=== PATIENT | female | born 1955 | race Hispanic/Latino ===

== ENCOUNTER 2017-06-20 06:22 | Day surgery (SDC) | payer MEDICARE ==
[2017-06-20] MEDS ORDERED: HURRICAINE ONE 20% TOPICAL SPRAY MM ×2 (07:15→07:47)
[2017-06-20] MEDS ORDERED: WATER FOR IRRIG STERILE IR ONE (07:15)
[2017-06-20] MEDS ORDERED: DIPRIVAN 10 MG/ML IV ONE ×2 (07:26)
--- NOTE | 2017-06-20 07:44 | Anesthesia Consultation ---
Anesthesia Consult and Med Hx Date of service: 06/20/17 - Airway Anesthetic Teeth Evaluation: Dentures (upper) ROM Head & Neck: Adequate Mental/Hyoid Distance: Adequate Mallampati Class: Class III Intubation Access Assessment: Possibly Difficult - Pre-Operative Health Status ASA Pre-Surgery Classification: ASA3 Proposed Anesthetic Plan: MAC - Pulmonary Hx Smoking: Yes - Cardiovascular System Hx Hypertension: Yes - Central Nervous System Hx Back Pain: Yes (arthritis) - Gastrointestinal Hx Gastroesophageal Reflux Disease: Yes
--- NOTE | 2017-06-20 07:47 | Anesthesia Day of Surgery ---
Anesthesia Day of Surgery - Day of Surgery Patient Examined: Yes Patient H&P Reviewed: Yes Patient is NPO: Yes
--- NOTE | 2017-06-20 08:03 | Operative Report ---
Operative Report Operative Report: OPERATIVE REPORT - EGD DATE 06/20/17 SURGERY: Upper endoscopy. SURGEON: Dr. Davis BANKING SPECIALIST: Jorge Luis Hyman DO PRE OP DX: hx of gastric band POST OP DX: gastritis , duodenitis TYPE OF ANESTHESIA: MAC. ESTIMATED BLOOD LOSS: None. COMPLICATIONS: None. SPECIMENS REMOVED: biopsy of antrum. FINDINGS: 1. Normal band. No erosions or ulcers 2. Otherwise, normal esophagus. Gastritis of the stomach and duodenitis. INDICATIONS:INDICATION FOR PROCEDURE: Patient is a 61-year-old female with a long history of morbid obesity. She had a lap gastric band placed previously in 2002. She is having severe reflux. She states she had the fluid removed from the band. She is not currently taking a PPI. PROCEDURE DETAILS: After consent was reviewed, patient was taken back to the operating room where patient was placed in the left lateral decubitus position and a bite block was placed in the mouth. After a time-out was called, MAC anesthesia was initiated. I then passed the endoscope into her oropharynx, into her esophagus, visualized the entire esophagus, which was all within normal limits. I then visualized the stomach which had gastritis and the first portion of the duodenum which had duodenitis. I then retroflexed the scope in the stomach and visualized the hiatus and I could see the gastric band. No erosion or slip were noted . A biopsy of the antrum was performed. After retroflexing I reexamined the site of the biopsy and no bleeding was noted. I then desufflated the stomach and removed the endoscope. Patient tolerated procedure well and was transferred to recovery room in good and stable condition.She will have carafate called in to the pharmacy.
--- NOTE | 2017-06-20 08:05 | Discharge Summary ---
Providers - Providers Attending physician: GREGORIO MARTINEZ Primary care physician: YARED SNEED MD Hospitalization Procedures: egd w biopsy Hospital course: 61 y.o. F presented to amb. surg for EGD. She has a hx of lap gastric band and has been having acid reflux. She tolerated the egd well. She was discharged home the same day. Disposition: - TO HOME OR SELFCARE Core Measure Documentation - Palliative Care Palliative Care/ Comfort Measures: Not Applicable - Core Measures Any of the following diagnoses?: none Exam - Physical Exam Narrative exam: no change Plan Additional Instructions: follow up in office with Dr. Martinez Follow up with: YARED SNEED MD [Primary Care Provider] - 7 Days
[2017-06-20 08:34] VITALS: BP 114/65
--- NOTE | 2017-06-20 11:37 | Post Anesthesia Evaluation ---
- Post Anesthesia Evaluation Patient Participated: Yes Airway Patent: Yes Stable Respiratory Function: Yes Nausea/Vomiting: No Temp > 96.8F: Yes Pain Manageable: Yes Adequeate Hydration: Yes Anesthesia Complications: No
[2017-06-20] MEDS ORDERED: HURRICAINE ONE 20% TOPICAL SPRAY MM NR (18:00)
== END 2017-06-20 06:23 | disposition home or self-care (01) ==
LOC: GIO 06:22
PROVIDERS: ATTEND Specialist
DX: K29.50 Unspecified chronic gastritis without bleeding (principal); K29.80 Duodenitis without bleeding; K21.9 Gastro-esophageal reflux disease without esophagitis; I10 Essential (primary) hypertension; M19.90 Unspecified osteoarthritis, unspecified site; E66.01 Morbid (severe) obesity due to excess calories; F41.9 Anxiety disorder, unspecified; F32.9 Major depressive disorder, single episode, unspecified; F17.200 Nicotine dependence, unspecified, uncomplicated; Z98.890 Other specified postprocedural states; Z90.710 Acquired absence of both cervix and uterus; Z68.41 Body mass index [BMI] 40.0-44.9, adult; Z98.84 Bariatric surgery status; Z88.8 Allergy status to other drugs, medicaments and biological substances
CPT/HCPCS: 43239; 88305; 88342; J2704

== ENCOUNTER → 2018-06-13 | Outpatient (CLI) | payer MEDICARE | END | disposition home or self-care (01) | LOC: SLR 11:00 | PROVIDERS: ATTEND Otolaryngology | DX: G47.33 Obstructive sleep apnea (adult) (pediatric) (principal); E66.9 Obesity, unspecified; R40.0 Somnolence; I10 Essential (primary) hypertension; K21.9 Gastro-esophageal reflux disease without esophagitis | CPT/HCPCS: G0399 ==

== ENCOUNTER 2018-09-04 06:26 | Inpatient (IN) | payer MEDICARE ==
[~2018-09-04 06:26] MED LIST: ANCEF/STERILE WATER 2 GM/20 ML 2 GM/20 ML SYRINGE IV NR; FLAGYL 500 MG/100 ML 500 MG/100 ML BAG IV NR
[2018-09-04] MEDS ORDERED: APRESOLINE IV PRN (07:22)
--- NOTE | 2018-09-04 07:50 | Anesthesia Day of Surgery ---
Anesthesia Day of Surgery - Day of Surgery Patient Examined: Yes Patient H&P Reviewed: Yes Patient is NPO: Yes Cardiac Clearance: Yes
--- NOTE | 2018-09-04 07:50 | Anesthesia Consultation ---
Anesthesia Consult and Med Hx Date of service: 09/04/18 - Airway Anesthetic Teeth Evaluation: Dentures ROM Head & Neck: Adequate Mental/Hyoid Distance: Adequate Mallampati Class: Class III Intubation Access Assessment: Possibly Difficult - Pulmonary Exam CTA: Yes - Cardiac Exam Cardiac Exam: RRR - Pre-Operative Health Status ASA Pre-Surgery Classification: ASA3 Proposed Anesthetic Plan: General - Pulmonary Hx Smoking: No Hx Respiratory Symptoms: No Hx Sleep Apnea: Yes (severe; noncompliant with CPAP) - Cardiovascular System Hx Hypertension: Yes (no antihyperrtensives today) Hx Heart Attack/AMI: No Hx Percutaneous Transluminal Coronary Angioplasty (PTCA): No Hx Cardia Arrhythmia: Yes (LBBB) - Central Nervous System Hx Seizures: No CVA: No Hx Back Pain: Yes Hx Psychiatric Problems: Yes - Gastrointestinal Hx Gastroesophageal Reflux Disease: Yes (controlled) - Endocrine Hx Renal Disease: No Hx Liver Disease: No Hx Insulin Dependent Diabetes: No Hx Non-Insulin Dependent Diabetes: No Hx Thyroid Disease: No - Hematic Hx Anemia: No - Other Systems Hx Alcohol Use: Yes Hx Obesity: Yes (BMI 42) - Additional Comments Anesthesia Medical History Comments: No hx anesthetic complicactions. Normal cardiac eval.
[2018-09-04] MEDS ORDERED: TRANSDERM-SCOP TD SCH (08:00)
[2018-09-04] MEDS ORDERED: LOVENOX SUB-Q NR (08:00)
[2018-09-04] MEDS ORDERED: ANCEF/STERILE WATER 2 GM/20 ML 2 GM/20 ML SYRINGE IV NR (08:00)
[2018-09-04] MEDS ORDERED: FLAGYL 500 MG/100 ML 500 MG/100 ML BAG IV NR (08:00)
[2018-09-04] MEDS: LACTATED RINGERS 1,000 ML IV SCH ×2 (08:31→18:42)
[2018-09-04] MEDS ORDERED: REGLAN IV PRN (09:00)
[2018-09-04] MEDS ORDERED: ZOFRAN IV PRN (09:00)
[2018-09-04] MEDS ORDERED: ZEMURON IV ONE ×3 (09:43→13:23)
[2018-09-04] MEDS ORDERED: XYLOCAINE MPF 2% ONE ×3 (09:43→13:23)
[2018-09-04] MEDS ORDERED: DILAUDID ONE (09:44)
[2018-09-04] MEDS ORDERED: DIPRIVAN 10 MG/ML IV ONE ×2 (09:44→13:24)
[2018-09-04] MEDS ORDERED: XYLOCAINE 1% 20 mL INFILTRATI ONE (10:41)
[2018-09-04] MEDS ORDERED: MARCAINE-EPI 0.5%-1:200,000 INFILTRATI ONE (10:41)
[2018-09-04] MEDS ORDERED: NACL 0.9% IR ONE (10:41)
[2018-09-04] MEDS ORDERED: DECADRON ONE (11:34)
[2018-09-04] MEDS ORDERED: TORADOL ONE (11:34)
[2018-09-04] MEDS ORDERED: SUBLIMAZE ONE ×2 (11:34→13:24)
[2018-09-04] MEDS ORDERED: ZOFRAN ONE (11:34)
[2018-09-04] MEDS ORDERED: BLOXIVERZ ONE (12:18)
[2018-09-04] MEDS ORDERED: ROBINUL ONE (12:18)
[2018-09-04] MEDS ORDERED: CLORPACTIN WCS-90 IR ONE ×2 (12:19)
[2018-09-04] MEDS: SUBLIMAZE IV PRN ×2 (13:16→13:43)
[2018-09-04] MEDS: MYLICON PO PRN ×2 (16:24→22:33)
--- NOTE | 2018-09-04 17:18 | Operative Report ---
SURGEON: Nathaniel Davis M.D. STUDENT ASSISTANCE COUNSELOR: Narinder Schulz M.D. Fellow; Teresa Gutierrez M.D., [facility] PREOPERATIVE DIAGNOSES: 1. Slipped band. 2. Reflux. 3. Status post lap band placement. 4. Morbid obesity. POSTOPERATIVE DIAGNOSES: 1. Slipped band. 2. Reflux. 3. Status post lap band placement. 4. Morbid obesity. OPERATION: 1. Laparoscopic band removal with conversion to sleeve gastrectomy. 2. Lysis of adhesions. 3. Reduction and repair of primary umbilical hernia. ANESTHESIA: General endotracheal anesthesia. COMPLICATIONS: None. SPECIMENS: Gastric remnant. BLEEDIN mL. INDICATIONS: The patient is a 62-year-old female with a history of morbid obesity. She had a band placed in 2012 with some weight loss, but developed reflux. Preoperative diagnosis revealed a slipped band. She was recommended removal with conversion to a sleeve gastrectomy for her comorbidities. The risks, complications and alternatives were explained to the patient. Informed consent was obtained. DESCRIPTION OF PROCEDURE: The patient was brought to the operating room where she was placed in the supine position and underwent general endotracheal intubation. She received preoperative antibiotics and DVT prophylaxis. A timeout was called to ensure proper patient, indication, operation after she was prepped and draped in the usual sterile fashion. Local analgesia was injected around the umbilicus and then a small stab incision was made at the base with insertion of a Veress needle. Insufflation pressures were achieved to 18 mmHg and then the incision was widened and a 15 mm trocar was inserted. An intra-abdominal view noted that we were underneath the omentum; therefore, the trocar was removed and a finger sweep was done to remove the adhesions. Upon reinsertion, we were in the appropriate abdominal cavity. Under direct visualization, additional 5 mm ports were placed in the right lateral, subxiphoid and left lateral quadrants. First, the adhesions were taken down from the umbilicus. She had a small umbilical hernia with a moderate amount of incarcerated omentum that was reduced and taken down. After adhesions were taken down, a liver retractor was placed. The patient was repositioned in steep reverse Trendelenburg. She had diffuse adhesions from her band to the undersurface of the liver. On inspection, I could tell that the band had rotated and was malpositioned. The overlying omental scar tissue over the band and tubing was taken down with electrocautery following the tubing to the band itself. Dense adhesions were taken down here to finally expose the band. The overlying scar tissue was lysed until the band was freely rotated. The tubing was cut and then the band was unbuckled and removed from the proximal stomach and from the abdominal cavity. The gastro-gastric attachments were dissected free and the existing sutures were cut. The overlying scar tissue was lysed to relieve the cicatrix The angle of His was dissected free. After this, the greater curvature of the stomach was from the gastrocolic ligament using the LigaSure device. She had several omental adhesions to the antrum of the stomach, there were also free. The stomach was then fully mobilized including the short gastrics as well as about 6 cm antegrade from the duodenum. She also had numerous posterior adhesions as well that were divided. After this, Anesthesia placed a 40-English bougie. They were able to pass the bougie without difficulty and a sleeve gastrectomy was performed with several staple loads after lowering insufflation pressures. The gastric remnant was removed from the umbilical port site and the fascia was closed with a #1 PDS in a standard fashion. Of note, she did have bleeding from the undersurface of her liver that was controlled with a combination of electrocautery and Surgicel. I did leave 2 pieces of Surgicel in the proximal stomach to help with hemostasis. After this, the port was palpated in the right mid abdomen A fresh incision was made overlying her old incision and dissected down to palpate the tubing and port itself. The port was noted to have migrated and was tilted in the subcutaneous tissues. She had an older style port that utilized fascial clips. The port was entirely dissected and removed. Upon removal, there was bleeding from the subcutaneous tissues that was first controlled with electrocautery and then ultimately I did have to place a few Vicryl stitches in order to obtain hemostasis. After this, the wound was irrigated with Clorpactin solution. Additional local was injected into all the wound sites. The ports were removed and incisions were all closed with 4-0 Monocryl. Sterile bandages were placed over top of all incisions. The patient was then extubated and left the operating room in stable condition. Counts were correct at the end of the case. FINDINGS: 1. A small umbilical hernia with incarcerated omental fat that was repaired in a primary fashion. 2. Dense adhesions from the tubing and band itself at the proximal stomach and undersurface of the liver. The band appeared to be malpositioned and had slipped causing an inflammatory reaction. 3. Bleeding at the port site upon removal of the port, controlled with several suture ligatures. [facility]# [id number] JIL/JACKIE BARTLETT
[2018-09-04] MEDS: TORADOL IV SCH (21:47)
[2018-09-04] MEDS ORDERED: ELAVIL PO SCH (22:00)
[2018-09-04] MEDS ORDERED: ZANAFLEX PO SCH (22:00)
[2018-09-05 06:04] LABS: Basophils % (Auto) 0.2 % (0.0-1.8); Hematocrit 33.3 % (30.3-42.9); Hemoglobin 11.3 gm/dl (10.1-14.3); Lymphocytes # (Auto) 2.3 K/mm3 (1.2-5.4); Mean Corpuscular HGB Conc 34 % (30-34); Mean Corpuscular Volume 88 fl (79-97); Monocytes # (Auto) 0.9 K/mm3 (0.0-0.8); Monocytes % (Auto) 8.7 % (0.0-7.3); Platelet Count 327 K/mm3 (140-440); Red Blood Count 3.79 M/mm3 (3.65-5.03)
[2018-09-05 06:23] LABS: BUN/Creatinine Ratio 20; Blood Urea Nitrogen 12 mg/dL (7-17); Calcium 8.6 mg/dL (8.4-10.2); Hemolysis Index 6
[2018-09-05 07:14] LABS: Bacteria,Urine 1+ /HPF (Negative); Bilirubin,Urine NEG (Negative); Blood,Urine NEG (Negative); Color,Urine Yellow (Yellow); Mucus,Urine FEW /HPF; Protein,Urine <15 mg/dL mg/dL (Negative); RBC,Urine < 1.0 /HPF (0.0-6.0); Urobilinogen,Urine < 2.0 mg/dL (<2.0)
--- NOTE | 2018-09-05 07:36 | Discharge Summary ---
Providers - Providers Date of Admission: 09/04/18 06:26 Date of discharge: 09/05/18 Attending physician: GREGORIO MARTINEZ Primary care physician: YARED SNEED MD Hospitalization Reason for admission: postop care Condition: Good Procedures: 09/04/18: Laparoscopic band removal converted to sleeve gastrectomy Hospital course: 62F admitted after her operation for routine postop care. She was managed on the general surgical floor. She had no major issues. Ambulated, tolerated a CLD, and was dc POD1. Disposition: DC-01 TO HOME OR SELFCARE Core Measure Documentation - Palliative Care Palliative Care/ Comfort Measures: Not Applicable - Core Measures Any of the following diagnoses?: none - VTE Discharge Requirements Deep Vein Thrombosis/Pulmonary Embolism Present on Admission: No - Acute [place] Discharge Requirements Aspirin at discharge: No Reason for no aspirin on DC: Surgical contraindication - Heart Failure Discharge Requirements MADAI/ARB for LVSD if EF <40%: Not Applicable - Stroke Discharge Requirements Statin for LDL = or >70 mg/dl on DC: Not Applicable Exam - Physical Exam Narrative exam: Gen: AAO, NAD Heart: RRR Lungs: CTAB Abd: MO, soft, NT, ND. Bandages c/d/i. Ext: No LE Edema - Constitutional Vitals: Temp Pulse Resp BP Pulse Ox 98.0 F 91 H 18 132/77 95 09/05/18 04:51 09/05/18 04:51 09/05/18 04:51 09/05/18 04:51 09/05/18 04:51 Plan Diet: clear liquids Wound: keep clean and dry, per your surgeon's advice Special Instructions: no heavy lifting Additional Instructions: James Martinez as scheduled Follow up with: YARED SNEED MD [Primary Care Provider] - 7 Days
[2018-09-05 08:36] VITALS: BP 118/59
[2018-09-05] MEDS ORDERED: LOVENOX SUB-Q SCH (10:00)
[2018-09-05] MEDS ORDERED: MAXZIDE-25 PO SCH (10:00)
[2018-09-05] MEDS: MYLICON PO PRN (10:49)
== END 2018-09-05 12:33 | disposition home or self-care (01) | DRG 327 ==
LOC: 3A 06:26 → 3B-SURG 13:51
PROVIDERS: ADMIT Specialist; ATTEND Specialist
PROC: 0DB64Z3 Excision of Stomach, Percutaneous Endoscopic Approach, Vertical (ICD-10-PCS; principal; 2018-09-04)
PROC: 0DNU4ZZ Release Omentum, Percutaneous Endoscopic Approach (ICD-10-PCS; 2018-09-04)
PROC: 0FN04ZZ Release Liver, Percutaneous Endoscopic Approach (ICD-10-PCS; 2018-09-04)
PROC: 0WQF4ZZ Repair Abdominal Wall, Percutaneous Endoscopic Approach (ICD-10-PCS; 2018-09-04)
DX: K95.09 Other complications of gastric band procedure (principal); Z68.41 Body mass index [BMI] 40.0-44.9, adult; K42.0 Umbilical hernia with obstruction, without gangrene; Y84.8 Other medical procedures as the cause of abnormal reaction of the patient, or of later complication, without mention of misadventure at the time of the procedure; Y92.098 Other place in other non-institutional residence as the place of occurrence of the external cause; E66.01 Morbid (severe) obesity due to excess calories; I10 Essential (primary) hypertension; N39.3 Stress incontinence (female) (male); K66.0 Peritoneal adhesions (postprocedural) (postinfection); K42.9 Umbilical hernia without obstruction or gangrene; K30 Functional dyspepsia; K21.9 Gastro-esophageal reflux disease without esophagitis; F32.9 Major depressive disorder, single episode, unspecified; Z71.3 Dietary counseling and surveillance; Z90.710 Acquired absence of both cervix and uterus; Z90.49 Acquired absence of other specified parts of digestive tract
CPT/HCPCS: 36415; 80048; 81001; 85025; 88300; 88302; 88307; 94760; G0378; J0690; J1100; J1170; J1650; J1885; J2405; J2704; J2710; J3010; J7120